=== PATIENT | male | born 1980 | race Caucasian/White ===

== ENCOUNTER 2022-06-19 15:04 | Emergency (ER) | payer MEDICARE, MEDICAID ==
[~2022-06-19] VITALS: Ht 170.2 cm; Wt 56.8 kg
[2022-06-19 15:42] VITALS: BP 106/67
== END 2022-06-19 18:02 | disposition left against medical advice (07) ==
LOC: ER 15:05
DX: R11.10 Vomiting, unspecified (principal); Z53.21 Procedure and treatment not carried out due to patient leaving prior to being seen by health care provider

== ENCOUNTER 2022-06-22 13:46 | Emergency (ER) | payer MEDICARE, MEDICAID ==
[~2022-06-22] VITALS: Ht 167.6 cm; Wt 56.8 kg
[2022-06-22 14:47] LABS: BASOPHILS % (AUTO) 0.5 % (0-1); EOSINOPHILS # (AUTO) 0.2 X10'3 (0-0.9); EOSINOPHILS % (AUTO) 4.5 % (0-6); HEMATOCRIT 44.4 % (42.0-52.0); LYMPHOCYTES # (AUTO) 1.3 X10'3 (1.1-4.8); LYMPHOCYTES % (AUTO) 23.1 % (21-51); MEAN CORPUSCULAR HEMOGLOBIN 29.5 PG (27.0-31.0); MEAN CORPUSCULAR HGB CONC 33.8 g/dL (33.0-36.5); MEAN CORPUSCULAR VOLUME 87.3 FL (78-98); MEAN PLATELET VOLUME 11.1 FL (7.4-10.4); MONOCYTES # (AUTO) 0.7 X10'3 (0-0.9); MONOCYTES % (AUTO) 12.6 % (2-12); NEUTROPHILS # (AUTO) 3.2 X10'3 (1.8-7.7); NEUTROPHILS % (AUTO) 59.3 % (42-75); PLATELET COUNT 159 X10'3 (140-440); RED BLOOD COUNT 5.08 X10'6 (4.70-6.10); RED CELL DISTRIBUTION WIDTH 13.4 % (11.5-14.5); WHITE BLOOD COUNT 5.4 X10'3 (4.5-11.0)
[2022-06-22 14:58] LABS: ALANINE AMINOTRANSFERASE 160 U/L (12-78); ALBUMIN 2.6 G/DL (3.4-5.0); ALBUMIN/GLOBULIN RATIO 0.7 (1.1-1.5); ALKALINE PHOSPHATASE 110 IU/L (46-116); ANION GAP 7 (8-16); ASPARTATE AMINO TRANSFERASE 74 U/L (10-37); BILIRUBIN,TOTAL 0.9 MG/DL (0.1-1.0); BLOOD UREA NITROGEN 12 MG/DL (7-18); BUN/CREATININE RATIO 28.6 (5.4-32.0); CALCIUM 8.5 MG/DL (8.5-10.1); CHLORIDE 105 MMOL/L (99-107); CREATININE 0.42 MG/DL (0.60-1.10); GLUCOSE 122 MG/DL (70-104); LIPASE 111 U/L (73-393); POTASSIUM 4.1 MMOL/L (3.5-5.1); SODIUM 138 MMOL/L (135-145); TOTAL CARBON DIOXIDE 25.9 MMOL/L (24-32); TOTAL PROTEIN 6.5 G/DL (6.4-8.2); eGFR > 90 ML/MIN
[2022-06-22] MEDS ORDERED: normal saline 1000ML IV soln IVB ONE (17:35)
[2022-06-22] MEDS ORDERED: ondansetron/PF 4mg/2ml inj IV ONE (17:37)
[2022-06-22 17:53] LABS: CLARITY,URINE CLEAR (Clear); COLOR,URINE YELLOW (Yellow); GLUCOSE, URINE NEGATIVE (Neg); KETONES,URINE NEGATIVE (Neg); LEUKOCYTE ESTERASE ,URINE NEGATIVE (Neg); NITRITES, URINE NEGATIVE (Neg); OCCULT BLOOD,URINE SMALL (Neg); PROTEIN,URINE NEGATIVE (Neg)
[2022-06-22 17:58] LABS: UA COLLECTION TYPE STRAIGHT CATH
[2022-06-22 18:00] LABS: BACTERIA,URINE NONE SEEN /HPF (Neg); MUCUS STRANDS FEW /LPF (Neg); SQUAMOUS EPITHELIAL CELL,UR FEW /LPF (FEW); WBC CLUMPS,URINE FEW /HPF (NEGATIVE)
[2022-06-22] MEDS ORDERED: dextrose 50%-water 50ml dispensing syringe IV ONE (18:10)
[2022-06-22] MEDS ORDERED: calcium chloride 100 MG/1 ML inj IV ONE (18:10)
[2022-06-22] MEDS ORDERED: insulin regular, human U-100 3ml vial - multi-dose IV ONE (18:10)
[2022-06-22] MEDS ORDERED: albuterol 2.5 MG/3 ML nebule NEB ONE (18:10)
[2022-06-22] MEDS ORDERED: calcium chloride inj. 2,000 MG in normal saline 100ml IV soln 100 ML IV ONE (18:35)
[2022-06-22 20:02] VITALS: BP 127/99
[2022-06-22] MEDS ORDERED: CefTRIAXone 2gm/D5W 50ml BAG 50 ML IV ONE (20:05)
[2022-06-22] MEDS ORDERED: CEPH250S PO (20:20)
[2022-06-22] MEDS ORDERED: ONDA4TAB12 PO (20:20)
== END 2022-06-22 21:17 | disposition home or self-care (01) ==
LOC: ER 13:47
DX: E86.0 Dehydration (principal); Z20.822 Contact with and (suspected) exposure to COVID-19; N39.0 Urinary tract infection, site not specified; Z79.899 Other long term (current) drug therapy
CPT/HCPCS: 71045; 80053; 81001; 83690; 85025; 87088; 87811; 96361; 96365; 96375; 99284; J0696; J2405; J7030